=== PATIENT | male | born 1955 | race Caucasian/White ===

== ENCOUNTER 2020-02-10 21:12 | Outpatient (CLI) | payer BC | END 2020-02-10 21:13 | disposition home or self-care (01) | LOC: COV 21:12 | PROVIDERS: ATTEND Family Medicine | DX: R05 Cough (principal); R53.83 Other fatigue; R09.81 Nasal congestion; J34.89 Other specified disorders of nose and nasal sinuses; Z20.822 Contact with and (suspected) exposure to COVID-19 ==

== ENCOUNTER 2020-02-12 22:05 | Outpatient (CLI) | payer BC, OTHER | END 2020-02-12 22:06 | disposition critical access hospital (66) | LOC: EMS 22:05 | PROVIDERS: ATTEND Surgery | DX: R06.00 Dyspnea, unspecified (principal) | CPT/HCPCS: A0425; A0427 ==

== ENCOUNTER 2020-02-12 22:38 | Observation (INO) | payer BC, OTHER ==
[2020-02-12] MEDS ORDERED: methylPREDNISolone SUCCINATE 125 MG/2 ML VIAL IVP STA (22:49)
[2020-02-12] MEDS ORDERED: IPRATROPIUM/ALBUTEROL 3 ML NEB INH STA ×2 (22:49→23:23)
[2020-02-12 22:58] LABS: BASOPHILS # (AUTO) 0.1 10^3/uL (0.0-0.1); BASOPHILS % (AUTO) 0.7 %; EOSINOPHILS # (AUTO) 0.6 10^3/uL (0.0-0.7); EOSINOPHILS % (AUTO) 5.9 %; HGB - HEMOGLOBIN 13.5 g/dL (14.0-18.0); LYMPHOCYTES % (AUTO) 21.1 %; MEAN CORPUSCULAR HEMOGLOBIN 29.9 pg (27.0-31.0); MEAN CORPUSCULAR HGB CONC 32.1 g/dL (32.0-36.0); MEAN CORPUSCULAR VOLUME 92.9 fL (80.0-94.0); MONOCYTES # (AUTO) 0.7 10^3/uL (0.0-1.0); MONOCYTES % (AUTO) 7.6 %; NEUTROPHILS % (AUTO) 64.4 %; PLT - PLATELET COUNT 259 10^3/uL (130-450); RED BLOOD COUNT 4.52 10^6/uL (4.70-6.10); RED CELL DISTRIBUTION WIDTH 13.3 % (12.0-15.0); WHITE BLOOD COUNT 9.4 x10^3/uL (4.8-10.8)
[2020-02-12 23:01] LABS: VBG PCO2 51.8 mmHg (41-51); VBG PH 7.326 (7.31-7.41); VBG PO2 41.3 mmHg (25-47)
[2020-02-12 23:02] LABS: VBG BASE EXCESS -0.4 mmol/L (-2 - +2)
[2020-02-12] MEDS ORDERED: IOVERSOL 320 100 ML VIAL IVP ONE ×2 (23:02→23:39)
[2020-02-12 23:11] LABS: ALBUMIN 4.3 g/dL (3.2-5.5); ALBUMIN/GLOBULIN RATIO 1.3 (1.0-2.2); ALKALINE PHOSPHATASE 62 IU/L (42-121); ALT ALANINE AMINOTRANSFERASE < 10 IU/L (10-60); AST ASPARTATE AMINOTRANSFERASE 26 IU/L (10-42); BILIRUBIN,TOTAL 0.6 mg/dL (0.2-1.0); BUN - BLOOD UREA NITROGEN 33 mg/dL (6-20); CALCIUM 9.1 mg/dL (8.5-10.3); CARBON DIOXIDE - CO2 26 mmol/L (21-32); CHLORIDE 102 mmol/L (101-111); CREATININE 1.5 mg/dL (0.6-1.2); GLUCOSE 110 mg/dL (70-100); LIPASE 17 U/L (22-51); SODIUM 141 mmol/L (135-145); TOTAL PROTEIN 7.6 g/dL (6.7-8.2)
[2020-02-12] MEDS ORDERED: LACTATED RINGERS 1,000 ML IV STA (23:44)
[2020-02-13] MEDS ORDERED: IPRATROPIUM/ALBUTEROL 3 ML NEB INH STA
--- NOTE | 2020-02-13 00:04 | ED Physician Documentation ---
History of Present Illness - Stated complaint Stated Complaint: SOA - Chief complaint Chief Complaint: Resp - History obtained from History obtained from: Patient - Additonal information Additional information: 64yM with pmh afib (recently dx this past month), severe ILD (sustained via chemical exposure in the ), COPD, recurrent PTX s/p multiple pleurodeses, BL upper lobectomy, p/w nonproductive cough progressively worsening over the past week, a/w sob this evening. patient took his albuterol mdi at home without relief and called ems due to worsening dyspnea. en route he was given combivent with improvement, o2 sats in 90s on 2L o2. on arrival patient was acutely dyspneic. further history limited by acuity. Review of Systems Unable to obtain: Other (unable to obtain complete ros 2/2 dyspnea) Constitutional: denies: Fever Nose: denies: Rhinorrhea / runny nose Cardiac: denies: Chest pain / pressure Respiratory: reports: Dyspnea, Cough, Wheezing GI: denies: Nausea PD PAST MEDICAL HISTORY - Past Medical History Past Medical History: Yes Cardiovascular: Hypertension, High cholesterol, Atrial fibrillation Respiratory: Asthma, COPD, Other - Past Surgical History Past Surgical History: Yes Cardiovascular: Lobectomy - Present Medications Home Medications: Ambulatory Orders Medication Instructions Recorded Confirmed Buprenorphine HCl/Naloxone HCl 2 mg PO BID 02/12/20 02/12/20 [Suboxone 2-0.5 mg Sl tab] Carbidopa/Levodopa/Entacapone 100 mg PO TID 02/12/20 02/12/20 [Carbidopa-Levodopa 100 mg-Enta] Lisinopril [Zestril] 20 mg PO DAILY 02/12/20 02/12/20 Metoprolol Succinate [Toprol Xl] 25 mg PO DAILY 02/12/20 02/12/20 Olopatadine HCl [Pataday] 2.5 ml INH DAILY 02/12/20 02/12/20 Rivaroxaban [Xarelto] 20 mg PO DAILY 02/12/20 02/12/20 Rosuvastatin Calcium [Crestor] 40 mg PO DAILY 02/12/20 02/12/20 Trazodone HCl 100 mg PO DAILY 02/12/20 02/12/20 busPIRone [Buspar] 5 mg PO DAILY 02/12/20 02/12/20 - Allergies Allergies/Adverse Reactions: Allergies Allergy/AdvReac Type Severity Reaction Status Date / Time No Known Drug Allergies Allergy Verified 02/12/20 22:44 - Social History Does the pt smoke?: No Smoking Status: Never smoker Does the pt drink ETOH?: Yes Does the pt have substance abuse?: No - Immunizations Immunizations are current?: Yes - POLST Patient has POLST: No PD ED PE NORMAL - Vitals Vital signs reviewed: Yes - General General: Alert and oriented X 3, Other (mild respiratory distress. some i ncreased wob) - HEENT HEENT: Atraumatic - Neck Neck: Supple, no meningeal sign - Cardiac Cardiac: RRR - Respiratory Respiratory: Other (BL wheezing and rhonchi in all lung hansen) - Abdomen Abdomen: Non tender, Non distended - Male Male : Deferred - Rectal Rectal: Deferred - Back Back: No CVA TTP - Derm Derm: Normal color, Warm and dry - Extremities Extremities: No deformity - Neuro Neuro: Alert and oriented X 3 - Psych Psych: Normal mood, Normal affect Results - Vitals Vitals: Vital Signs - 24 hr 02/12/20 02/12/20 02/12/20 22:44 22:48 23:05 Temperature 37.1 C 37.1 C Heart Rate 87 86 89 Respiratory 26 H 25 H 24 Rate Blood Pressure 148/106 H 148/106 H O2 Saturation 100 99 02/12/20 02/12/20 02/12/20 23:18 23:35 23:55 Temperature 37.1 C 37.1 C Heart Rate 81 88 87 Respiratory 24 20 21 Rate Blood Pressure 146/99 H 124/68 O2 Saturation 100 100 02/13/20 00:25 Temperature Heart Rate 93 Respiratory 18 Rate Blood Pressure O2 Saturation Oxygen O2 Source Nasal cannula Oxygen Flow Rate 2 - EKG (time done) 2252 Rate: Rate (enter#) (84) Rhythm: Atrial flutter - Labs Labs: Laboratory Tests 02/12/20 02/12/20 02/12/20 22:48 22:48 22:48 WBC 9.4 RBC 4.52 L Hgb 13.5 L Hct 42.0 MCV 92.9 MCH 29.9 MCHC 32.1 RDW 13.3 Plt Count 259 MPV 10.0 Neut # (Auto) 6.0 Lymph # (Auto) 2.0 [place] # (Auto) 0.7 Eos # (Auto) 0.6 Baso # (Auto) 0.1 Absolute Nucleated RBC 0.00 Nucleated RBC % 0.0 VBG pH VBG pCO2 VBG pO2 VBG HCO3 VBG Total CO2 VBG O2 Saturation VBG Base Excess Sodium 141 Potassium 4.4 Chloride 102 Carbon Dioxide 26 Anion Gap 13.0 BUN 33 H Creatinine 1.5 H Estimated GFR (MDRD) 47 L Glucose 110 H Calcium 9.1 Total Bilirubin 0.6 AST 26 ALT < 10 L Alkaline Phosphatase 62 Troponin I High Sens < 2.3 L B-Natriuretic Peptide Total Protein 7.6 Albumin 4.3 Globulin 3.3 Albumin/Globulin Ratio 1.3 Lipase 17 L Nasal Adenovirus (PCR) Nasal B. parapertussis DNA (PCR) Nasal Coronavir 229E PCR Nasal Coronavir HKU1 PCR Nasal Coronavir NL63 PCR Nasal Coronavir OC43 PCR Nasal Enterovir/Rhinovir PCR Nasal Influenza B PCR Nasal Influenza A PCR Nasal Parainfluen 1 PCR Nasal Parainfluen 2 PCR Nasal Parainfluen 3 PCR Nasal Parainfluen 4 PCR Nasal RSV (PCR) Nasal B.pertussis DNA PCR Nasal C.pneumoniae (PCR) Marcus Human Metapneumo PCR Nasal M.pneumoniae (PCR) Nasal SARS-CoV-2 (PCR) 02/12/20 02/12/20 02/12/20 22:48 22:48 22:55 WBC RBC Hgb Hct MCV MCH MCHC RDW Plt Count MPV Neut # (Auto) Lymph # (Auto) [place] # (Auto) Eos # (Auto) Baso # (Auto) Absolute Nucleated RBC Nucleated RBC % VBG pH 7.326 VBG pCO2 51.8 H VBG pO2 41.3 VBG HCO3 26.5 VBG Total CO2 28.0 VBG O2 Saturation 79.8 VBG Base Excess -0.4 Sodium Potassium Chloride Carbon Dioxide Anion Gap BUN Creatinine Estimated GFR (MDRD) Glucose Calcium Total Bilirubin AST ALT Alkaline Phosphatase Troponin I High Sens B-Natriuretic Peptide 21 Total Protein Albumin Globulin Albumin/Globulin Ratio Lipase Nasal Adenovirus (PCR) NOT DETECTED Nasal B. parapertussis DNA (PCR) NOT DETECTED Nasal Coronavir 229E PCR NOT DETECTED Nasal Coronavir HKU1 PCR NOT DETECTED Nasal Coronavir NL63 PCR NOT DETECTED Nasal Coronavir OC43 PCR NOT DETECTED Nasal Enterovir/Rhinovir PCR NOT DETECTED Nasal Influenza B PCR NOT DETECTED Nasal Influenza A PCR NOT DETECTED Nasal Parainfluen 1 PCR NOT DETECTED Nasal Parainfluen 2 PCR NOT DETECTED Nasal Parainfluen 3 PCR NOT DETECTED Nasal Parainfluen 4 PCR NOT DETECTED Nasal RSV (PCR) NOT DETECTED Nasal B.pertussis DNA PCR NOT DETECTED Nasal C.pneumoniae (PCR) NOT DETECTED Marcus Human Metapneumo PCR NOT DETECTED Nasal M.pneumoniae (PCR) NOT DETECTED Nasal SARS-CoV-2 (PCR) NOT DETECTED PD MEDICAL DECISION MAKING - ED course Complexity details: reviewed results, d/w patient, d/w regulatory affairs consultant ED course: patient with considerable improvement in airflow s/p 2 duonebs. still with wheezing, nonproductive cough. endorses continued discomfort. Finding of L sided PE on CT d/w patient. He has already been anticoagulated for past month for afib, however patient is uncomfortable with discharge at this time given continued dyspnea, therefore we will admit for further monitoring. Patient will need nebulizer script, steroid course on discharge. Departure - Departure Disposition: 64 [facility] DC/Xfer Clinical Impression: Pulmonary embolism, COPD exacerbation, Interstitial lung disease Condition: Stable
[2020-02-13 00:05] LABS: C. PNEUMONIAE- RESP PCR PANEL NOT DETECTED
[2020-02-13] MEDS ORDERED: guaiFENesin 600 MG TABLET PO STA (00:21)
[2020-02-13] MEDS ORDERED: ZOLPIDEM 5 MG TABLET PO PRN (00:39)
[2020-02-13] MEDS ORDERED: ACETAMINOPHEN 325 MG TABLET PO PRN (00:39)
[2020-02-13] MEDS ORDERED: ONDANSETRON 4 MG/2 ML VIAL IVP PRN (00:39)
[2020-02-13] MEDS ORDERED: SODIUM CHLORIDE FLUSH 0.9% 10 ML SYRINGE IVP PRN (00:39)
[2020-02-13] MEDS ORDERED: ENOXAPARIN 80 MG/0.8 ML SYRINGE SUBQ STA (00:39)
[2020-02-13 01:18] LABS: INR 1.2 (0.8-1.2)
[2020-02-13] MEDS: SODIUM CHLORIDE FLUSH 0.9% 10 ML SYRINGE IVP SCH ×2 (01:24→08:39)
[2020-02-13 01:25] LABS: PARTIAL THROMBOPLASTIN TIME 30.6 secs (24.9-33.3)
[2020-02-13] MEDS: predniSONE 20 MG TABLET PO SCH ×2 (01:53→07:55)
[2020-02-13] MEDS ORDERED: traZODone 50 MG TABLET PO SCH ×2 (03:00→09:00)
--- NOTE | 2020-02-13 03:31 | HISTORY & PHYSICAL EXAMINATION ---
DATE OF SERVICE: 02/13/2020 Physician: Nadja Godwin MD CHIEF COMPLAINT: Shortness of breath and cough. HISTORY OF PRESENT ILLNESS: Patient is a 64-year-old white male with complex medical background including chronic lung disease secondary to chemical exposure with chronic scarring, status post multiple pleurodesis procedures and s/p lobectomy. Regardless of advanced lung disease, he has not been oxygen dependent and has not been on steroid as outpatient. He uses Albuterol inhaler and recently was switched from Spiriva inhaler to a new long-acting beta agonist, olodaterol. His additional medical problems include recently diagnosed atrial fibrillation, patient was found with paroxysmal atrial fibrillation in January 2020. Underwent outpatient echocardiogram on 02/04/2020, which reportedly was unremarkable. He had a Holter monitor for two weeks and per his knowledge, no significant abnormal events were recorded. He continues outpatient followup and ablation procedure was already discussed. Regarding medication management, he was recently started on metoprolol for rate control and he was started on Pradaxa for therapeutic anticoagulation, which he did not tolerate due to nausea, therefore, recently was switched to Xarelto. As part of recent workup, he had an outpatient CT scan of the chest and reportedly other than his chronic lung abnormality, no new pathology was found; in particular, there was no pulmonary embolism, at least per the patient's knowledge. Regarding circumstances leading to current admission, the patient developed dry cough about a week ago. He had upper respiratory-like symptoms such as runny nose and congestion, was evaluated as outpatient on 02/10/2020, tested for COVID and was found negative. He was recommended to take [id number] cough medicine. Overnight on 02/12/2020 to 02/13/2020, the patient became profoundly short of breath. His cough was unbearable; therefore, his son recommended he come to the ER. Upon presentation to the ER, vital signs were stable, although notably the heart rate was close to 100 and EKG showed atrial fibrillation. Laboratories included negative COVID test, unremarkable BMP, negative troponin, abnormal renal function test with creatinine of 1.5, no baseline creatinine available to compare. Chest x-ray without acute infiltrate. On exam, the patient was wheezing and appeared with increased work of breathing in respiratory distress. He was treated for COPD, received IV steroid and small volume nebulizers. Considering his risk for thromboembolic complication, he underwent CT angiography of the chest, which did show a small left lower lobe pulmonary embolism. There was underlying chronic lung disease with multiple lung nodules as well. PAST MEDICAL HISTORY 1. COPD/interstitial lung disease/no history of oxygen dependence, no steroid dependence, status post pleurodesis, status post lobectomy, multiple episodes of pneumothorax in the past. 2. Parkinson's disease. 3. Depression. 4. Hypertension 5. Dyslipidemia. 6. Opiate dependence, most recently stable on Suboxone. 7. Recently diagnosed atrial fibrillation, on metoprolol for rate control and on therapeutic Xarelto anticoagulation. OUTPATIENT MEDICATIONS 1. Lisinopril. 2. Metoprolol. 3. Olodaterol. 4. Rivaroxaban. 5. Suboxone. 6. BuSpar. 7. Carbidopa/levodopa. 8. Entacapone. 9. Crestor. 10. Trazodone. FAMILY HISTORY: Reviewed, noncontributory. SOCIAL HISTORY: The patient has shakes/tremors due to Parkinson's disease. He ambulates without assistive device. He is a nonsmoker. He is functional with instrumental activities of daily living and drives. CODE STATUS: The patient confirmed that he would wish to receive resuscitation in case of emergency; however, he would not want to be on long-term life support. PHYSICAL EXAMINATION VITAL SIGNS: Temperature 37.1 Celsius, heart rate between 80-95, blood pressure 120/60, respiratory rate between 18-24, oxygen saturation between 93-100% on 2 liters nasal cannula. GENERAL: The patient is a well-developed, chronically ill-appearing male without acute distress, although he had slightly increased work of breathing. LUNGS: Increased work of breathing with respiratory rate in the mid 20s. Rhonchi and expiratory wheezes about all lung hansen with decreased air entry. CARDIOVASCULAR: S1, S2. Irregularly irregular. No obvious murmur. ABDOMEN: Soft, benign, nontender. LYMPHATIC: No lymphedema. MUSCULOSKELETAL: No calf tenderness. SKIN: With pallor. No jaundice. Minor rash noted on the right lower extremity with excoriations. NEUROLOGIC: Alert, oriented, nonfocal, with upper extremity tremors. PSYCHIATRIC: Cooperative. ASSESSMENT AND PLAN: Patient is a 64-year-old male with chronic lung disease and with recently diagnosed atrial fibrillation who is presenting with respiratory distress and increased work of breathing. He appears with chronic obstructive pulmonary disease exacerbation, plus atrial fibrillation with borderline rapid ventricular rate and is found with a small pulmonary embolism. ACTIVE ISSUES/PROBLEM BY PROBLEM/DIAGNOSES 1. Small left lower lobe pulmonary embolism. a. Could be acute versus subacute, patient had recent outpatient CT scan of the chest after which he was started on anticoagulation, unsure whether PE was seen already or this is a new finding today. b. Initially patient was on Pradaxa anticoagulation, subsequently, due to side effects discontinued it and switched to Xarelto, unclear whether he had good anticoagulant levels since the diagnosis of atrial fibrillation. In any case, for now, we need to assume that he developed pulmonary embolism while anticoagulated. c. Multiple risks for PE including atrial fibrillation, limited mobility due to Parkinson's disease, chronic lung disease/COPD. 2. Interstitial lung disease and chronic obstructive pulmonary disease with acute exacerbation. 3. Atrial fibrillation with borderline rapid rate/suboptimal rate control. 4. Therapeutic anticoagulation. Was on Pradaxa, recently on Xarelto, for now will be on therapeutic Lovenox. 5. Lung nodules, which will need interval followup. Patient has good outpatient care. 6. Opiate dependence/stable on Suboxone. 7. Renal failure, likely chronic renal insufficiency. No baseline creatinine available, was on lisinopril. PLAN AND ORDERS 1. The patient is getting admitted under observation. We will continue treatment of COPD exacerbation with oral steroid, proton pump inhibitor, continue inhaled steroid as well and we will continue long-acting beta agonist. Judicious use of ipratropium considering atrial fibrillation. 2. Regarding atrial fibrillation, we will continue metoprolol for rate control, increasing the dose. 3. Hold lisinopril considering BUN above 30 and underlying renal failure, plus will need room to titrate up rate control. 4. Regarding anticoagulation, we will use Lovenox injections for now. I would probably continue Lovenox for about a week and subsequently would switch to oral anticoagulant. At this point, it is unsure whether the patient had stable anticoagulant levels or he developed PE while anticoagulated. 5. Continue outpatient medications for patient's chronic conditions including Parkinson's disease, depression, dyslipidemia and opiate dependence. 6. Regarding further workup for atrial fibrillation, will check magnesium, TSH, and hemoglobin A1c. Echocardiogram was already done as outpatient. During the daytime, the result can be obtained. Holter monitor was also used as outpatient and patient does have outpatient cardiology followup; therefore, transition to outpatient care will be readily available. 7. Deep venous thrombosis prophylaxis not needed as the patient is therapeutically anticoagulated. 8. Social work consult for discharge planning. The patient will need multidisciplinary followup when discharged, including continued cardiology followup and pulmonology. In addition, might need hematology opinion regarding the best anticoagulant for this patient. I would think that Eliquis is a reasonably good choice after he finishes a few days of Lovenox. Time spent in the care of this patient was 70 minutes. ATTESTATION: Admitted under observation, expected to discharge within 48 hrs. If develops complications and becomes inpatient, expected to transfer to another facility in less than 96 hrs. TD: 02/13/2020 01:50 SAAD
[2020-02-13] MEDS: guaiFENesin/DEXTROMETHORPHAN 10 ML UDC PO PRN ×3 (05:57→17:23)
[2020-02-13] MEDS ORDERED: PANTOPRAZOLE 40 MG TABLET PO SCH (07:00)
[2020-02-13] MEDS ORDERED: BUDESONIDE 0.5 MG/2 ML NEB INH SCH (07:00)
[2020-02-13 07:46] LABS: HEMOGLOBIN A1c% 5.8 % (4.27-6.07)
[2020-02-13] MEDS: IPRATROPIUM 0.2 MG/ML NEB INH SCH ×3 (07:47→15:15)
--- NOTE | 2020-02-13 08:23 | XRAY Report ---
PROCEDURE: Chest 1 View X-Ray INDICATIONS: Chest Pain TECHNIQUE: One view of the chest was acquired. COMPARISON: CT chest angiogram same day. FINDINGS: Surgical changes and devices: None. Lungs and pleura: No pleural effusions or pneumothorax. Lungs are clear. Mediastinum: Mediastinal contours appear normal. Heart size is normal. Bones and chest wall: No suspicious bony lesions. Overlying soft tissues appear unremarkable. IMPRESSION: Source of chest pain is not seen. Reviewed by: Armand Martinez MD on 02/13/2020 8:22 AM [facility] Approved by: Armand Martinez MD on 02/13/2020 8:22 AM [facility] Station ID: [id number]
--- NOTE | 2020-02-13 08:33 | CT Report ---
PROCEDURE: ANGIO CHEST W/WO INDICATIONS: r/o PE CONTRAST: IV CONTRAST: Optiray 320 ml: 80 PO CONTRAST: *NO PO CONTRAST TECHNIQUE: After the administration of intravenous contrast, 2 mm thick sections acquired from the pulmonary api dana to the posterior costophrenic angles. 3-dimensional maximum intensity projection (MIP) coronal a nd sagittal reformats were then acquired through the thorax. For radiation dose reduction, the follow ing was used: automated exposure control, adjustment of mA and/or kV according to patient size. COMPARISON: FINDINGS: Image quality: Excellent. Pulmonary arteries: Pulmonary arteries are normal in size, and demonstrate no intraluminal filling d efects to suggest central pulmonary embolism on the right. There is a small apparent filling defect w ithin a posterior basilar pulmonary artery branch superiorly, best seen centered on CT series 5 image 77 and slightly above and below.. Lungs and pleura: Lungs are abnormal with what appears to be centrilobular emphysema suggestive of p rior smoking history, and within the posterior lower lobes bilaterally at the same axial level, below that of the suyapa, there are single pulmonary nodules, measuring up to 6 x 8 mm on the right and 5 mm on the left. These are near the pleural surface posteriorly. There is seen on CT series 6 image 16 1. Several additional small scattered radiodensities are present, potentially a manifestation of mild focal lung scarring. No pleural effusions or pneumothorax. Central and peripheral airways are stokes nt. Mediastinum: Heart size is normal, without pericardial effusion. No mediastinal or hilar adenopathy . Thoracic aorta is normal in caliber and enhancement. Esophagus is normal in caliber, without hiat al hernia. Bones and chest wall: No suspicious bony lesions. Ribs and thoracic spine appear intact throughout. The thyroid is normal. No axillary or supraclavicular adenopathy. Abdomen: Visualized upper abdominal solid organs appear normal in the early arterial phase of enhanc ement. IMPRESSION: 2 small pulmonary nodules are found that would warrant follow-up by CT scanning in 6 months. The larg est is present at the right posterior mid lung measuring up to 6 x 8 mm. There is a subtle apparent filling defect within the left pulmonary artery, posterior basilar, that l ikely represents a small nonobstructive pulmonary embolus. The contrast bolus is suboptimal for best visualization of the area, and repeat study may be warranted. Possible prior smoking history. Reviewed by: Armand Martinez MD on 02/13/2020 8:32 AM PST Approved by: Armand Martinez MD on 02/13/2020 8:32 AM PST Station ID: [id number]
[2020-02-13] MEDS ORDERED: busPIRone 5 MG TABLET PO SCH (09:00)
[2020-02-13] MEDS ORDERED: BUPRENORPHINE HCL SL SCH (10:00)
[2020-02-13] MEDS ORDERED: NALOXONE HCL SL SCH (10:00)
--- NOTE | 2020-02-13 11:21 | PHARMACY PROGRESS NOTE ---
- Best Possible Medication History Admit Date and Time: 02/13/20 0039 Processed by: Pharmacy Medication History completed: Yes Patient Interview: Completed Secondary Source(s): Written medication list, Physician records, Pharmacy records, Insurance records As the person ultimately responsible for medication therapy, providers are able to order a medication from an existing home medication list in [facility] via the "Reconcile Routine" prior to Confirmation of that medication by production support consultant. Such practice is discouraged except when the physician, in their clinical judgment, deems that a medical need exists for a medication without regard to previous use.
[2020-02-13] MEDS: CARBIDOPA/LEVODOPA 25 MG/100 MG TABLET PO SCH ×2 (11:42→17:23)
[2020-02-13] MEDS ORDERED: ENOXAPARIN 100 MG/ML SYRINGE SUBQ SCH ×2 (13:00→21:00)
--- NOTE | 2020-02-13 16:59 | Discharge Plan ---
Discharge Plan Problem Reviewed?: Yes Disposition: Home, Self Care Condition: Stable Prescriptions: Apixaban [Eliquis] 5 mg PO BID #70 tablet Diet: Regular Activity Restrictions: Activity as Tolerated Shower Restrictions: No Driving Restrictions: No Instruction Topics: Apixaban oral tablets, Embolism Pulmonary, Angiography Pulmonary Health Concerns: He presented to the hospital with mild cough for a week which suddenly increased to severe coughing and shortness of breath. You have been taking a blood thinner for atrial fibrillation by the name of Mehranto. You also have history of interstitial lung disease and possible COPD. We found you to have a pulmonary emboli. We do not know why your blood thinner did not prevent you from having 1. I did speak to an oncologist, he recommends that we switch you to Eliquis. Plan of Treatment: 1. Please see your primary care provider in follow-up in the next 1 to 2 weeks. 2. Please have your primary care provider refer you to oncology to see if you have a blood clotting disorder Care Goals: To remain with a stable and steady pulmonary status Assessment: Patient understands and will follow through with primary care provider and referrals. No Smoking: If you smoke, Please STOP! Call for help. Follow-up with: David Lazcano MD [Primary Care Provider] -
[2020-02-13] MEDS ORDERED: ENOXAPARIN 100 MG/ML SYRINGE SUBQ ONE (17:03)
[2020-02-13 17:24] VITALS: BP 144/80
--- NOTE | 2020-02-13 17:35 | DISCHARGE SUMMARY ---
"Discharge Summary Admit Date: 02/12/20 Discharge Date: 02/13/20 Discharging Provider: Maricruz Mccormack MD Primary Care Provider: David Lazcano MD Code Status: Attempt Resuscitation Condition at Discharge: Stable Discharge Disposition: 01 Home, Self Care - DIAGNOSES Discharge Diagnoses with Status of Each Condition: 1. Acute exacerbation COPD secondary to #2 2. Small left lower lobe pulmonary embolism 3. Interstitial lung disease 4. Chronic atrial fibrillation with RVR 5. New lung nodules 6. Opiate dependence, stable 7. Chronic kidney disease - HPI History of Present Illness: Patient was in the hospital less than 24 hours. Please refer to the detailed history and physical. He has chronic lung disease. Chronic blebs. History of pneumothorax. Has been stable. Developed acute cough that was mild a week ago, gradually increasing in severity, severe shortness of breath in the hours prior to admission. - CONSULTS | PROCEDURES Procedures: His CT angiogram shows him to have centrilobular emphysema suggestive of prior smoking history, and there is a single pulmonary nodule measuring 6 x 8 mm on the right and 5 mm on the left. These are near the pleural surface posteriorly. Several scattered radiodensities are also present with mild focal lung scarring . Small filling defect is seen in the posterior basilar pulmonary artery branch posteriorly. He would warrant a CT scan in 6 months. - HOSPITAL COURSE Hospital Course: The patient was stabilized with nebulizers. Oxygen. He received Lovenox 100 mg twice daily. Within several hours he was at baseline. He still felt a little bit of chest congestion but was completely back to normal with breathing. He is adamant that he has been compliant with his Xarelto. Previous Pradaxa was not well tolerated because of nausea. I spoke to oncology who is in the medical ambulatory clinic today. They feel that it would be appropriate to switch him to Eliquis. He should be on 10 mg twice daily for 7 days followed by 5 mg p.o. twice daily. He should also be seen in follow-up for possible hypercoagulable state since he failed anticoagulation on Xarelto. He is discharged in stable condition. Temperature is 37. Pulse 93. Blood pressure 144/80. Respirations 18 and he is 96% on room air. He is a 5 foot 8 inch stocky male who is 98 kg. Good skin color. He has a resting tremor left hand, flat affect due to possibly Parkinson's disease. Neck is supple. Lungs are clear to auscultation and percussion with fine crackles at the bases. No use of accessory muscles, laughing spontaneously without shortness of breath. Speaking without shortness of breath. He has an irregular rate and rhythm. The abdomen is soft and nontender. Extremities are without edema. I have asked him to follow-up with his primary care provider. Make sure he gets referred for oncology evaluation on the opinion of elke Durant. - ALLERGIES Allergies/Adverse Reactions: Allergies Allergy/AdvReac Type Severity Reaction Status Date / Time No Known Drug Allergies Allergy Verified 02/12/20 22:44 - MEDICATIONS Home Medications: Ambulatory Orders Medication Instructions Recorded Confirmed Metoprolol Succinate [Toprol Xl] 12.5 mg PO DAILY 02/12/20 02/13/20 Rosuvastatin Calcium [Crestor] 40 mg PO DAILY 02/12/20 02/12/20 Trazodone HCl 100 mg PO QPM PRN 02/12/20 02/13/20 Albuterol Sulfate [Proair 1 - 2 puffs INH Q6H PRN 02/13/20 02/13/20 Respiclick] Apixaban [Eliquis] 5 mg PO BID #70 tablet 02/13/20 Buprenorphine HCl/Naloxone HCl 1 each SL BID 02/13/20 02/13/20 [Suboxone 2 mg-0.5 mg Sl Film] Dextroamphetamine/Amphetamine 15 - 30 mg PO DAILY PRN 02/13/20 02/13/20 [Adderall 30 mg Tablet] Lisinopril [Zestril] 40 mg PO DAILY 02/13/20 02/13/20 Tiotropium Br/Olodaterol HCl 2 puffs INH DAILY 02/13/20 02/13/20 [Stiolto Respimat Inhal [place]] - LABS Result Diagrams: 02/12/20 22:48 02/12/20 22:48"
[2020-02-13] MEDS ORDERED: ATORVASTATIN 40 MG TABLET PO SCH (21:00)
== END 2020-02-13 17:57 | disposition home or self-care (01) ==
LOC: EDUNIT# → ED 22:38 → MS2 02-13 00:39
PROVIDERS: ADMIT Internal Medicine; ATTEND Specialist
DX: I26.99 Other pulmonary embolism without acute cor pulmonale (principal); J43.2 Centrilobular emphysema; R06.03 Acute respiratory distress; J84.89 Other specified interstitial pulmonary diseases; R91.8 Other nonspecific abnormal finding of lung field; Z79.01 Long term (current) use of anticoagulants; Z79.51 Long term (current) use of inhaled steroids; I48.0 Paroxysmal atrial fibrillation; Z20.822 Contact with and (suspected) exposure to COVID-19; G20 Parkinson's disease; F32.9 Major depressive disorder, single episode, unspecified; E78.5 Hyperlipidemia, unspecified; F11.20 Opioid dependence, uncomplicated; I12.9 Hypertensive chronic kidney disease with stage 1 through stage 4 chronic kidney disease, or unspecified chronic kidney disease; N18.9 Chronic kidney disease, unspecified
CPT/HCPCS: 0202U; 71045; 71275; 82803; 83036; 83690; 83735; 83880; 84484; 85610; 85730; 93005; 94640; 94664; 96372; 96374; 99285; A9270; G0378; J1650; J7120; J7512; J7626; Q9967; 36415; 80053; 84443; 85025

== ENCOUNTER 2020-02-25 11:07 | Outpatient (CLI) | payer BC ==
[2020-02-25 16:09] LABS: BASOPHILS # (AUTO) 0.1 10^3/uL (0.0-0.1); BASOPHILS % (AUTO) 0.7 %; EOSINOPHILS # (AUTO) 0.4 10^3/uL (0.0-0.7); EOSINOPHILS % (AUTO) 3.2 %; HGB - HEMOGLOBIN 14.5 g/dL (14.0-18.0); LYMPHOCYTES # (AUTO) 0.8 10^3/uL (1.5-3.5); LYMPHOCYTES % (AUTO) 6.9 %; MEAN CORPUSCULAR HEMOGLOBIN 30.1 pg (27.0-31.0); MEAN CORPUSCULAR HGB CONC 31.8 g/dL (32.0-36.0); MEAN CORPUSCULAR VOLUME 94.6 fL (80.0-94.0); MEAN PLATELET VOLUME 11.1 fL (7.4-11.4); MONOCYTES # (AUTO) 0.3 10^3/uL (0.0-1.0); MONOCYTES % (AUTO) 2.7 %; NEUTROPHILS # (AUTO) 9.4 10^3/uL (1.5-6.6); PLT - PLATELET COUNT 269 10^3/uL (130-450); RED BLOOD COUNT 4.82 10^6/uL (4.70-6.10); RED CELL DISTRIBUTION WIDTH 13.2 % (12.0-15.0); WHITE BLOOD COUNT 10.9 x10^3/uL (4.8-10.8)
[2020-02-25 17:16] LABS: ALBUMIN 4.6 g/dL (3.2-5.5); ALBUMIN/GLOBULIN RATIO 1.3 (1.0-2.2); ALKALINE PHOSPHATASE 56 IU/L (42-121); ALT ALANINE AMINOTRANSFERASE < 10 IU/L (10-60); AST ASPARTATE AMINOTRANSFERASE 19 IU/L (10-42); BILIRUBIN,TOTAL 0.7 mg/dL (0.2-1.0); BUN - BLOOD UREA NITROGEN 29 mg/dL (6-20); CALCIUM 9.2 mg/dL (8.5-10.3); CARBON DIOXIDE - CO2 25 mmol/L (21-32); CHLORIDE 98 mmol/L (101-111); CREATININE 1.1 mg/dL (0.6-1.2); GLUCOSE 104 mg/dL (70-100); SODIUM 135 mmol/L (135-145); TOTAL PROTEIN 8.1 g/dL (6.7-8.2)
== END 2020-02-25 11:08 | disposition home or self-care (01) ==
LOC: LAB.S 11:07
PROVIDERS: ATTEND Internal Medicine
DX: I26.99 Other pulmonary embolism without acute cor pulmonale (principal); Z79.899 Other long term (current) drug therapy; Z12.5 Encounter for screening for malignant neoplasm of prostate
CPT/HCPCS: 36415; 80053; 83615; 83880; 84153; 85025

== ENCOUNTER 2020-09-28 07:37 | Outpatient (CLI) | payer BC, OTHER ==
[2020-09-28 14:37] LABS: BASOPHILS # (AUTO) 0.1 10^3/uL (0.0-0.1); BASOPHILS % (AUTO) 0.8 %; EOSINOPHILS # (AUTO) 0.2 10^3/uL (0.0-0.7); EOSINOPHILS % (AUTO) 3.1 %; HCT - HEMATOCRIT 48.3 % (42.0-52.0); HGB - HEMOGLOBIN 14.7 g/dL (14.0-18.0); LYMPHOCYTES # (AUTO) 1.3 10^3/uL (1.5-3.5); LYMPHOCYTES % (AUTO) 21.8 %; MEAN CORPUSCULAR HEMOGLOBIN 28.6 pg (27.0-31.0); MEAN CORPUSCULAR HGB CONC 30.4 g/dL (32.0-36.0); MEAN PLATELET VOLUME 11.3 fL (7.4-11.4); MONOCYTES # (AUTO) 0.4 10^3/uL (0.0-1.0); MONOCYTES % (AUTO) 6.4 %; NEUTROPHILS # (AUTO) 4.1 10^3/uL (1.5-6.6); NEUTROPHILS % (AUTO) 67.6 %; PLT - PLATELET COUNT 229 10^3/uL (130-450); RED BLOOD COUNT 5.14 10^6/uL (4.70-6.10); RED CELL DISTRIBUTION WIDTH 14.2 % (12.0-15.0); WHITE BLOOD COUNT 6.1 x10^3/uL (4.8-10.8)
[2020-09-28 16:11] LABS: ALBUMIN 4.4 g/dL (3.2-5.5); ALBUMIN/GLOBULIN RATIO 1.3 (1.0-2.2); ALKALINE PHOSPHATASE 70 IU/L (42-121); ALT ALANINE AMINOTRANSFERASE < 10 IU/L (10-60); AST ASPARTATE AMINOTRANSFERASE 14 IU/L (10-42); BILIRUBIN,TOTAL 0.6 mg/dL (0.2-1.0); BUN - BLOOD UREA NITROGEN 24 mg/dL (6-20); CALCIUM 9.1 mg/dL (8.5-10.3); CARBON DIOXIDE - CO2 26 mmol/L (21-32); CHLORIDE 102 mmol/L (101-111); CHOL/HDL RATIO 3.6 (<5.0); CHOLESTEROL 232 mg/dL; CREATININE 1.3 mg/dL (0.6-1.2); GFR - MDRD 55 (>89); GLUCOSE 96 mg/dL (70-100); HDL CHOLESTEROL 65 mg/dL; LDL CHOLESTEROL,CALCULATED 144 mg/dL; LDL/HDL RATIO 2.2 (<3.6); POTASSIUM 4.4 mmol/L (3.5-5.0); SODIUM 140 mmol/L (135-145); TOTAL PROTEIN 7.8 g/dL (6.7-8.2); TRIGLYCERIDES 115 mg/dL; VLDL CHOLESTEROL 23 mg/dL
== END 2020-09-28 07:38 | disposition home or self-care (01) ==
LOC: LAB.S 07:37
PROVIDERS: ATTEND Internal Medicine
DX: Z79.899 Other long term (current) drug therapy (principal); Z13.220 Encounter for screening for lipoid disorders; Z12.5 Encounter for screening for malignant neoplasm of prostate; I26.99 Other pulmonary embolism without acute cor pulmonale
CPT/HCPCS: 36415; 80053; 80061; 83721; 84153; 85025

== ENCOUNTER 2021-11-21 16:55 | Outpatient (CLI) | payer BC, OTHER ==
--- NOTE | 2021-11-21 12:24 | XRAY Report ---
PROCEDURE: Ankle 3 View RT INDICATIONS: RIGHT ANKLE PAIN TECHNIQUE: 3 views of the ankle were acquired. COMPARISON: None FINDINGS: Bones: No fractures or dislocations. Ankle mortise is normally aligned. No suspicious bony lesions . Soft tissues: No tibiotalar joint effusion. Achilles tendon appears normal. IMPRESSION: No acute osseous abnormality. If symptoms persist, follow-up radiographs and/or CT may b e helpful for further evaluation. Reviewed by: Jabier Singh MD on 11/21/2021 12:23 PM PDT Approved by: Jabier Singh MD on 11/21/2021 12:23 PM PDT Station ID: [id number]
== END 2021-11-21 16:56 | disposition home or self-care (01) ==
LOC: DI.S 16:55
PROVIDERS: ATTEND Physician Assistant Medical
DX: M25.571 Pain in right ankle and joints of right foot (principal)

== ENCOUNTER 2022-03-28 08:00 | Outpatient (CLI) | payer BC, OTHER ==
--- NOTE | 2022-03-28 15:55 | XRAY Report ---
PROCEDURE: Hip w/Pelvis 2-3V RT INDICATIONS: RIGHT HIP PAIN TECHNIQUE: AP pelvis with lateral view(s) of the right hip(s). COMPARISON: None. FINDINGS: Bones: No fractures or dislocations. Pelvic ring appears intact. No suspicious bony lesions. Soft tissues: The visualized bowel gas pattern is normal. No suspicious soft tissue calcifications. IMPRESSION: No acute osseous abnormality. If clinical symptoms persist or there is clinical suspicio n for internal derangement, consider MRI. Reviewed by: Rip Ratliff MD on 03/28/2022 3:53 PM PST Approved by: Rip Ratliff MD on 03/28/2022 3:53 PM PST Station ID: [id number]
--- NOTE | 2022-03-28 16:04 | XRAY Report ---
PROCEDURE: Lumbar Spine 2 View INDICATIONS: LOW BACK PAIN TECHNIQUE: 3 views of the lumbar spine were acquired. COMPARISON: None. FINDINGS: Bones: 5 [id number] vertebrae are present. There is grade 1-2 anterolisthesis of L5 on S1 seco ndary to L5 pars defects. No vertebral body compression fractures. No suspicious bony lesions. Mod erate degenerative disc disease throughout the lumbar spine. Moderate facet arthropathy at L5 L5 and L5-S1. Soft tissues: Overlying bowel gas pattern is normal. No suspicious soft tissue calcifications. IMPRESSION: 1. L5 pars defects. There is grade 1-2 anterolisthesis of L5 on S1. 2. Moderate degenerative disc and facet disease. Reviewed by: Rip Ratliff MD on 03/28/2022 4:02 PM PST Approved by: Rip Ratliff MD on 03/28/2022 4:02 PM PST Station ID: [id number]
== END 2022-03-28 23:59 | disposition home or self-care (01) ==
LOC: DI.S 08:00
PROVIDERS: ATTEND Registered Nurse
DX: M25.551 Pain in right hip (principal); M43.17 Spondylolisthesis, lumbosacral region; M51.36 Other intervertebral disc degeneration, lumbar region; M47.816 Spondylosis without myelopathy or radiculopathy, lumbar region; M47.817 Spondylosis without myelopathy or radiculopathy, lumbosacral region

== ENCOUNTER 2022-08-10 11:26 | Emergency (ER) | payer BC, OTHER ==
[2022-08-10 12:03] VITALS: BP 148/70
[2022-08-10] MEDS ORDERED: SODIUM CHLORIDE 0.9% 1,000 ML IV STA (12:39)
[2022-08-10] MEDS ORDERED: ONDANSETRON 4 MG/2 ML VIAL IVP STA (12:39)
[2022-08-10 12:40] LABS: ALBUMIN 4.5 g/dL (3.2-5.5); ALBUMIN/GLOBULIN RATIO 1.3 (1.0-2.2); ALKALINE PHOSPHATASE 68 IU/L (42-121); ALT ALANINE AMINOTRANSFERASE < 10 IU/L (10-60); AST ASPARTATE AMINOTRANSFERASE 24 IU/L (10-42); BILIRUBIN,TOTAL 0.9 mg/dL (0.2-1.0); BUN - BLOOD UREA NITROGEN 17 mg/dL (6-20); CALCIUM 9.7 mg/dL (8.5-10.3); CARBON DIOXIDE - CO2 26 mmol/L (21-32); CHLORIDE 103 mmol/L (101-111); CREATININE 0.9 mg/dL (0.6-1.2); GFR - MDRD 84 (>89); GLUCOSE 120 mg/dL (70-100); LIPASE 24 U/L (22-51); POTASSIUM 3.8 mmol/L (3.5-5.0); SODIUM 139 mmol/L (135-145); TOTAL PROTEIN 8.1 g/dL (6.7-8.2)
[2022-08-10 12:42] LABS: BILIRUBIN,URINE NEGATIVE (NEGATIVE); GLUCOSE, URINE (UA) NEGATIVE (NEGATIVE); KETONES,URINE (UA) TRACE mg/dL (NEGATIVE); LEUKOCYTE ESTERASE, URINE NEGATIVE (NEGATIVE); NITRITE,URINE NEGATIVE (NEGATIVE); OCCULT BLOOD,URINE TRACE-INTA (NEGATIVE); PROTEIN,URINE 100 mg/dL (NEGATIVE); UROBILINOGEN,URINE 0.2 (NORMAL) E.U./dL (NORMAL)
--- NOTE | 2022-08-10 12:45 | ED Physician Documentation ---
PD HPI ABD PAIN - Stated complaint Stated Complaint: NAUSEA,VOMIT,FEVER - Chief complaint Chief Complaint: Abd Pain - History obtained from History obtained from: Patient - Additional information Additional information: Patient is a 66-year-old male presenting for evaluation of nausea and vomiting and epigastric pain that is been present since 8 PM last night. He reports the pain was initially sharp and much worse than it currently is.He has had multiple episodes of emesis throughout the night including this morning. He has tried Zofran that he has at home without any improvement. He has last bowel movement was yesterday. No blood in emesis or stools. He is on Eliquis for history of a PE. He denies chest pain, difficulty breathing, fevers. He denies history of prior abdominal surgeries.No known sick contacts. Per they had dinner out last night and he did eat a [employer].She did not eat the same dish as him. Review of Systems Constitutional: denies: Fever Cardiac: denies: Chest pain / pressure Respiratory: denies: Dyspnea GI: reports: Abdominal Pain, Nausea, Vomiting. denies: Bloody / black stool : denies: Dysuria Neurologic: denies: Headache PD PAST MEDICAL HISTORY - Past Medical History Cardiovascular: Hypertension, High cholesterol, Atrial fibrillation Respiratory: Asthma, COPD, CPAP use, Other Neuro: Parkinson's, Tremors Endocrine/Autoimmune: None GI: None : None Psych: None Musculoskeletal: None Derm: Other - Past Surgical History Past Surgical History: Yes Cardiovascular: Lobectomy - Present Medications Home Medications: Ambulatory Orders Medication Instructions Recorded Confirmed Metoprolol Succinate [Toprol Xl] 12.5 mg PO DAILY 02/12/20 02/13/20 Rosuvastatin Calcium [Crestor] 40 mg PO DAILY 02/12/20 02/12/20 Trazodone HCl 100 mg PO QPM PRN 02/12/20 02/13/20 Albuterol Sulfate [Proair 1 - 2 puffs INH Q6H PRN 02/13/20 02/13/20 Respiclick] Apixaban [Eliquis] 5 mg PO BID #70 tablet 02/13/20 Buprenorphine HCl/Naloxone HCl 1 each SL BID 02/13/20 02/13/20 [Suboxone 2 mg-0.5 mg Sl Film] Dextroamphetamine/Amphetamine 15 - 30 mg PO DAILY PRN 02/13/20 02/13/20 [Adderall 30 mg Tablet] Lisinopril [Zestril] 40 mg PO DAILY 02/13/20 02/13/20 Tiotropium Br/Olodaterol HCl 2 puffs INH DAILY 02/13/20 02/13/20 [Stiolto Respimat Inhal [place]] Ondansetron Odt [Zofran] 4 mg TL Q6H PRN #10 tablet 08/10/22 - Allergies Allergies/Adverse Reactions: Allergies Allergy/AdvReac Type Severity Reaction Status Date / Time No Known Drug Allergies Allergy Verified 02/12/20 22:44 - Social History Does the pt smoke?: No Smoking Status: Never smoker Does the pt drink ETOH?: Yes Does the pt have substance abuse?: No - Immunizations Immunizations are current?: Yes - POLST Patient has POLST: No PD ED PE NORMAL - General General: Alert and oriented X 3, No acute distress, Well developed/nourished - HEENT HEENT: Atraumatic, Moist mucous membranes, Pharynx benign - Neck Neck: Supple, no meningeal sign - Cardiac Cardiac: RRR, No murmur - Respiratory Respiratory: No respiratory distress, Clear bilaterally - Abdomen Abdomen: Normal bowel sounds, Soft, Non distended, Other (Mild epigastric tenderness to palpation, no right upper quadrant tenderness on deep palpation, no lower abdominal tenderness) - Derm Derm: Warm and dry Results - Vitals Vitals: Vital Signs - 24 hr 08/10/22 11:55 Temperature 37.2 C Heart Rate 51 L Respiratory 16 Rate Blood Pressure 148/70 H O2 Saturation 99 Oxygen O2 Source Room air - EKG (time done) 1249 EKG releavant findings:: EKG personally interpreted by author of this note. Relevant findings are: Rate 69, normal sinus rhythm, right bundle branch block, no STEMI, no ST depressions Rate: Rate (enter#) (69) Rhythm: NSR Intervals: RBBB Ischemia: No: ST elevation c/w ischemia - Labs Labs: Laboratory Tests 08/10/22 08/10/22 08/10/22 12:10 12:20 12:58 WBC 7.9 RBC 5.27 Hgb 15.3 Hct 47.0 MCV 89.2 MCH 29.0 MCHC 32.6 RDW 13.6 Plt Count 261 MPV 10.1 Neut # (Auto) 7.3 H Lymph # (Auto) 0.4 L Fisher # (Auto) 0.2 Eos # (Auto) 0.0 Baso # (Auto) 0.0 Absolute Nucleated RBC 0.00 Nucleated RBC % 0.0 Sodium 139 Potassium 3.8 Chloride 103 Carbon Dioxide 26 Anion Gap 10.0 BUN 17 Creatinine 0.9 Estimated GFR (MDRD) 84 L Glucose 120 H Calcium 9.7 Total Bilirubin 0.9 AST 24 ALT < 10 L Alkaline Phosphatase 68 Total Protein 8.1 Albumin 4.5 Globulin 3.6 Albumin/Globulin Ratio 1.3 Lipase 24 Urine Color ORANGE Urine Clarity CLEAR Urine pH 7.0 Ur Specific [place] >=1.030 H Urine Protein 100 H Urine Glucose (UA) NEGATIVE Urine Ketones TRACE Urine Occult Blood TRACE-INTA Urine Nitrite NEGATIVE Urine Bilirubin NEGATIVE Urine Urobilinogen 0.2 (NORMAL) Ur Leukocyte Esterase NEGATIVE Urine RBC 0-5 Urine WBC 0-3 Ur Squamous Epith Cells RARE Squamous Urine Bacteria Few Ur Microscopic Review INDICATED Urine Culture Comments NOT INDICATED PD Medical Decision Making - ED course Complexity details: reviewed results, re-evaluated patient, d/w patient, d/w family () ED course: Patient is a 66-year-old male presenting for evaluation of epigastric abdominal pain that started last night with multiple episodes of nausea and vomiting. The pain is largely resolved prior to presenting to the emergency department. His vital signs appear stable. He has minimal tenderness on exam with no right upper quadrant tenderness on deep palpation or lower abdominal tenderness. CBC, chemistries and urine analysis were reviewed And without any significant findings. He is feeling better with IV fluids and Zofran. Repeat abdominal exam remained benign. Patient is tolerating p.o. As he has no tenderness on his exam and pain has improved do not think imaging is necessary at this time. Patient is counseled on need for close follow-up with PCP as well as strict return precautions for any worsening symptoms. 1423 - Feeling better, tolerated p.o. Departure - Departure Disposition: 01 Home, Self Care Clinical Impression: Nausea & vomiting, Epigastric abdominal pain Condition: Stable Instructions: ED Nausea Vomiting, ED Epigastric Pain [facility]O Prescriptions: Ondansetron Odt [Zofran] 4 mg TL Q6H PRN #10 tablet PRN Reason: Nausea / Vomiting Comments: The exact cause for your pain at this time remains unclear but it is reassuring that it has improved without any specific intervention. Your labs are also reassuring. Please have close follow-up with your primary care provider. If at anytime your symptoms return or worsen please return to the emergency department.I have also sent a prescription for an antinausea medication called [facility] in [place]. I would discard your prior prescription as it may no longer be effective. Discharge Date/Time: 08/10/22 14:31
[2022-08-10 12:47] LABS: CLARITY,URINE CLEAR (CLEAR)
[2022-08-10 12:52] LABS: BACTERIA,URINE Few /HPF (None Seen); RBC,URINE 0-5 /HPF (0-5); SQUAMOUS EPITHELIAL CELL,UR RARE Squamous (<= Few); WBC,URINE 0-3 /HPF (0-3)
[2022-08-10 13:01] LABS: BASOPHILS % (AUTO) 0.1 %; HGB - HEMOGLOBIN 15.3 g/dL (14.0-18.0); LYMPHOCYTES # (AUTO) 0.4 10^3/uL (1.5-3.5); MEAN CORPUSCULAR HGB CONC 32.6 g/dL (32.0-36.0); MEAN CORPUSCULAR VOLUME 89.2 fL (80.0-94.0); MEAN PLATELET VOLUME 10.1 fL (7.4-11.4); MONOCYTES # (AUTO) 0.2 10^3/uL (0.0-1.0); MONOCYTES % (AUTO) 2.6 %; NEUTROPHILS # (AUTO) 7.3 10^3/uL (1.5-6.6); PLT - PLATELET COUNT 261 10^3/uL (130-450); RED BLOOD COUNT 5.27 10^6/uL (4.70-6.10); RED CELL DISTRIBUTION WIDTH 13.6 % (12.0-15.0); WHITE BLOOD COUNT 7.9 x10^3/uL (4.8-10.8)
== END 2022-08-10 14:31 | disposition home or self-care (01) ==
LOC: ED 11:26
DX: R11.2 Nausea with vomiting, unspecified (principal); R10.13 Epigastric pain
CPT/HCPCS: 36415; 80053; 81001; 81003; 83690; 85025; 87086; 93005; 96374; 99284

== ENCOUNTER 2023-10-17 07:00 | Outpatient (CLI) | payer OTHER ==
--- NOTE | 2023-10-18 10:13 | XRAY Report ---
PROCEDURE: Hand 3+V RT INDICATIONS: RIGHT HAND PAIN TECHNIQUE: 3 views of the hand(s) acquired. COMPARISON: None. FINDINGS: Bones: There is a subtle cortical irregularity at the first distal phalanx base on the oblique view only. No other cortical defect is seen. No dislocations. Mild joint space loss and marginal spur form ation at the second and third MCP joint. No suspicious bony lesions. Soft tissues: No suspicious soft tissue calcifications or masses. IMPRESSION: Questionable nondisplaced fracture at the base of the first distal phalanx. Mild arthritic changes at the MCP joints. Reviewed by: Janey Leslie MD on 10/18/2023 10:11 AM PDT Approved by: Janey Leslie MD on 10/18/2023 10:11 AM PDT Station ID: [id number]
== END 2023-10-17 23:59 | disposition home or self-care (01) ==
LOC: DI.S 07:00
PROVIDERS: ATTEND Registered Nurse
DX: S60.221A Contusion of right hand, initial encounter (principal); R93.6 Abnormal findings on diagnostic imaging of limbs; W19.XXXA Unspecified fall, initial encounter

== ENCOUNTER 2023-10-24 08:00 | Outpatient (CLI) | payer OTHER ==
--- NOTE | 2023-10-24 10:39 | XRAY Report ---
PROCEDURE: Finger(s) RT INDICATIONS: RIGHT THUMB SPRAIN TECHNIQUE: AP hand, 2 views of the first finger(s) acquired. COMPARISON: None. FINDINGS: Bones: No fractures or dislocations. Osteoarthritic changes are noted throughout right thumb most no tably involving first CMC joint. No acute fracture or dislocation. No bony erosive changes. No suspic ious bony lesions. Soft tissues: No suspicious soft tissue calcifications or masses. 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 No fracture or di slocation. No gross soft tissue abnormalities. Reviewed by: Nolan Lucas MD on 10/24/2023 10:38 AM PDT Approved by: Nolan Lucas MD on 10/24/2023 10:38 AM PDT Station ID: [id number]
== END 2023-10-24 23:59 | disposition home or self-care (01) ==
LOC: DI.S 08:00
PROVIDERS: ATTEND Emergency Medicine
DX: S63.641D Sprain of metacarpophalangeal joint of right thumb, subsequent encounter (principal); M18.11 Unilateral primary osteoarthritis of first carpometacarpal joint, right hand